=== PATIENT | male | born 1990 | race Two or more races ===

== ENCOUNTER 2018-11-15 05:32 | Emergency (ER) | payer OTHER ==
[~2018-11-15] VITALS: Ht 177.8 cm; Wt 85.3 kg
[2018-11-15] MEDS ORDERED: NKM (05:40)
[2018-11-15 05:42] VITALS: BP 131/85
--- NOTE | 2018-11-15 05:42 | NUR ---
ED Nurse Note: pt walked in due to right shoulder pain since 11/12/18, pt stated he fell on right arm. Addendum: 11/15/18 at 0547 by PDELEON ED Nurse Note: per pt, he was walking and tripped. pt landed on his hands and pressure went to the right shoulder. per pt he took 800mg motrin today and had removed a lidocaine patch 3 hours ago.
[2018-11-15] MEDS ORDERED: IBUPROFEN800 MG ORAL (06:26)
--- NOTE | 2018-11-15 06:40 | NUR ---
ED Nurse Note: xray at bedside
--- NOTE | 2018-11-15 06:41 | Emergency Room Report ---
History of Present Illness General Chief Complaint: Shoulder Injury Source: Patient Present Illness HPI Patient fell Tuesday night. He hit his out stretched hand more on the right- hand side. He has pain in his right shoulder since that time. It really began the next day. He's having trouble sleeping because of the pain. His been taking Motrin 800 mg. The last dose was at 4 AM. He rates the pain at 10/10 at this time aching and localized to the shoulder not radiating. Denies fevers, upper respiratory illness or other major medical problems. 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 He is having some pain working on the computer. Allergies: Coded Allergies: Dust (Verified Allergy, Unknown, 11/15/18) LACTOSE (Verified Allergy, Unknown, 11/15/18) Patient History Past Medical History: see triage record Social History: Reports: smoking Social History Narrative computer Reviewed Nursing Documentation: PMH: Agreed; PSxH: Agreed Nursing Documentation-PMH Past Medical History: No Stated History Review of Systems Constitutional: Reports: see HPI Respiratory: Reports: see HPI Musculoskeletal: Reports: see HPI Skin: Reports: see HPI Neurological: Reports: see HPI Hematologic/Lymphatic: Denies: easy bleeding Physical Exam Vital Signs Date Time Temp Pulse Resp B/P (MAP) Pulse Ox O2 Delivery O2 Flow Rate FiO2 11/15/18 05:35 97.5 72 16 131/85 96 Room Air Sp02 EP Interpretation: reviewed, normal General Appearance: well appearing, no apparent distress, GCS 15 Head: normocephalic, atraumatic Eyes: bilateral eye normal inspection, bilateral eye PERRL ENT: hearing grossly normal, normal voice, moist mucus membranes Neck: full range of motion, supple Respiratory: lungs clear, no respiratory distress, speaking full sentences Cardiovascular #1: regular rate, rhythm Cardiovascular #2: 2+ radial (R) - Distal capillary fill normal Gastrointestinal: normal inspection Musculoskeletal: back normal, digits/nails normal, gait/station normal, other - Tenderness mid deltoid to percussion. Able to lift hands fully above head. Tenderness with forced abduction. Neurologic: alert, motor strength/tone normal, sensory intact, normal gait, other - Distal neurovascular is normal Psychiatric: mood/affect normal Skin: no rash Medical Decision Making Diagnostic Impression: Primary Impression: Sprain of right shoulder Qualified Codes: S43.431A - Superior glenoid labrum lesion of right shoulder, initial encounter ER Course Patient presents with right shoulder injury on Tuesday, it is Tuesday today. Differential includes shoulder sprain, fracture, bursitis amongst others. X- rays indicated. The patient took Motrin at 4 AM and therefore will be given Tylenol at this time. X-ray normal. Sling applied by tech and some improvement. Neurovascular check by me and normal. Discussed with patient expected course of the injury. Patient stable for outpatient observation and treatment. Other X-Ray Diagnostic Results Other X-Ray Diagnostic Results : X-Ray ordered: R shoulder # of Views/Limited Vs Complete: 3 View Indication: Pain EP Interpretation: Yes Interpretation: no dislocation, no soft tissue swelling, no fractures Impression: No acute disease Electronically Signed by: Electronically signed by Grayson Goldman MD Last Vital Signs Date Time Temp Pulse Resp B/P (MAP) Pulse Ox O2 Delivery O2 Flow Rate FiO2 11/15/18 07:08 97.5 72 16 131/85 96 Room Air Status: improved Disposition: HOME, SELF-CARE Condition: Improved Scripts Ibuprofen* (MOTRIN*) 600 Mg Tablet 600 MG ORAL Q6H PRN for For Pain, #20 TAB Prov: Grayson Goldman MD 11/15/18 Tramadol Hcl* (ULTRAM*) 50 Mg Tablet 50 MG ORAL Q6H PRN for For Pain, #10 TAB 0 Refills Prov: Grayson Goldman MD 11/15/18 Grayson Goldman MD Nov 15, 2018 06:41
[2018-11-15] MEDS ORDERED: Acetaminophen 500mg (ES) tab ORAL ONE (06:45)
[2018-11-15] MEDS ORDERED: IBUPROFEN600 MG ORAL (07:04)
[2018-11-15] MEDS ORDERED: TRAMADOL HCL50 MG ORAL (07:04)
--- NOTE | 2018-11-15 07:07 | NUR ---
ED Nurse Note: pt dc per ermd order, pt is aox4, pt was given dc and prescription instructions. pt is able to verbalize understadning. pt is able to walk with steady gait. pt took all belongings. sling was applied
[2018-11-15 07:08] VITALS: BP 131/85
--- NOTE | 2018-11-15 10:19 | Diagnostic Imaging Report ---
Indication: Right shoulder pain for 3 days after falling forward Technique: 3 views of the right shoulder Comparison: none Findings: No acute fractures. No dislocations. The joint spaces are preserved Impression: Negative
== END 2018-11-15 07:07 | disposition home or self-care (01) ==
LOC: EMR 07:02
DX: S43.491A Other sprain of right shoulder joint, initial encounter (principal); W19.XXXA Unspecified fall, initial encounter; Y92.9 Unspecified place or not applicable; F17.200 Nicotine dependence, unspecified, uncomplicated
CPT/HCPCS: 99283